=== PATIENT | male | born 1995 | race Two or more races ===

== ENCOUNTER 2018-09-15 14:50 | Emergency (ER) | payer SELFPAY ==
[~2018-09-15] VITALS: Ht 177.8 cm; Wt 65.2 kg
[2018-09-15 17:19] VITALS: BP 128/88
== END 2018-09-15 17:36 | disposition home or self-care (01) ==
LOC: ED 17:09
DX: S62.657A Nondisplaced fracture of middle phalanx of left little finger, initial encounter for closed fracture (principal); X58.XXXA Exposure to other specified factors, initial encounter; Y93.89 Activity, other specified; Y92.89 Other specified places as the place of occurrence of the external cause; Y99.8 Other external cause status
CPT/HCPCS: 29125; 99283

== ENCOUNTER 2018-11-04 15:13 | Emergency (ER) | payer SELFPAY ==
[~2018-11-04] VITALS: Ht 177.8 cm; Wt 65.8 kg
[2018-11-04 15:16] VITALS: BP 137/76
[2018-11-04] MEDS ORDERED: BACITRACIN ZINC OINT 500U/GM, 0.9 GM ONE (15:36)
== END 2018-11-04 16:23 | disposition home or self-care (01) ==
LOC: ED 16:00
DX: S60.221A Contusion of right hand, initial encounter (principal); S60.511A Abrasion of right hand, initial encounter; X58.XXXA Exposure to other specified factors, initial encounter; Y93.89 Activity, other specified; Y92.009 Unspecified place in unspecified non-institutional (private) residence as the place of occurrence of the external cause; Y99.8 Other external cause status
CPT/HCPCS: 99283

== ENCOUNTER 2019-01-23 17:39 | Emergency (ER) | payer SELFPAY ==
[~2019-01-23] VITALS: Ht 177.8 cm; Wt 64.7 kg
[2019-01-23 17:42] VITALS: BP 138/87
[2019-01-23] MEDS ORDERED: DIPH,PERTUSS(ACELL),TET VAC/PF 0.5 ML IM-VACC ONE (18:30)
--- NOTE | 2019-01-23 18:40 | NUR ---
DC EDUCATION PROVIDED, PT DEMONSTRATES UNDERSTANDING. PT AMBULATED STEADILY TO DC WITH RN.
== END 2019-01-23 18:54 | disposition home or self-care (01) ==
LOC: ED 18:45
DX: S60.221A Contusion of right hand, initial encounter (principal); Y04.0XXA Assault by unarmed brawl or fight, initial encounter; Y93.89 Activity, other specified; Y92.410 Unspecified street and highway as the place of occurrence of the external cause; Y99.8 Other external cause status
CPT/HCPCS: 70100; 90471; 90715

== ENCOUNTER 2019-01-24 15:05 | Emergency (ER) | payer SELFPAY ==
[~2019-01-24] VITALS: Ht 177.8 cm; Wt 65.0 kg
--- NOTE | 2019-01-24 15:30 | NUR ---
LEFT HAND PAIN AFTER HITTING A WALL
[2019-01-24 15:31] VITALS: BP 143/86
--- NOTE | 2019-01-24 16:39 | NUR ---
SPLINT APPLIED BY TECH. [facility] INTACT
== END 2019-01-24 16:42 | disposition home or self-care (01) ==
LOC: ED 16:36
DX: S62.327A Displaced fracture of shaft of fifth metacarpal bone, left hand, initial encounter for closed fracture (principal); W22.01XA Walked into wall, initial encounter; Y93.89 Activity, other specified; Y92.098 Other place in other non-institutional residence as the place of occurrence of the external cause; Y99.8 Other external cause status
CPT/HCPCS: 29125; 99283

== ENCOUNTER 2019-06-30 23:24 | Emergency (ER) | payer SELFPAY ==
[~2019-06-30] VITALS: Ht 177.8 cm; Wt 66.8 kg
[2019-06-30] MEDS ORDERED: METHOCARBAMOL 750 MG TABLET ONE (23:52)
[2019-06-30] MEDS ORDERED: IBUPROFEN 600 MG TABLET ONE (23:53)
[2019-07-01] MEDS ORDERED: IBUPROFEN 600 MG TABLET PO ONE
[2019-07-01] MEDS ORDERED: METHOCARBAMOL 750 MG TABLET PO ONE
[2019-07-01 00:55] VITALS: BP 122/74
== END 2019-07-01 00:57 | disposition home or self-care (01) ==
LOC: ED 23:58
DX: S39.012A Strain of muscle, fascia and tendon of lower back, initial encounter (principal); V49.19XA Passenger injured in collision with other motor vehicles in nontraffic accident, initial encounter; Y93.89 Activity, other specified; Y92.410 Unspecified street and highway as the place of occurrence of the external cause; Y99.8 Other external cause status
CPT/HCPCS: 99283